=== PATIENT | male | born 1995 | race Caucasian/White ===

== ENCOUNTER → 2018-01-17 | Outpatient (CLI) | payer BC | END | disposition home or self-care (01) | LOC: LABWHC1 07:58 | PROVIDERS: ATTEND Internal Medicine | DX: R53.82 Chronic fatigue, unspecified (principal) | CPT/HCPCS: 36415; 83001; 83002; 84402; 84403 ==

== ENCOUNTER → 2021-08-10 | Outpatient (CLI) | payer BC ==
--- NOTE | 2021-08-10 14:43 | US ---
EXAMINATION TYPE: US scrotum with doppler. DATE OF EXAM: 08/10/2021 COMPARISON: NONE CLINICAL HISTORY: 26-year-old male N50.819 Testicular pain. Left pain occasional TECHNIQUE: Grayscale and color Doppler Duplex imaging performed of the scrotum. FINDINGS: EXAM MEASUREMENTS: TESTICLES: Right Testicle: 4.9x3.4x2.4 cm Left Testicle: 4.9x2.5x3.1 cm EPIDIDYMIS HEAD: Right Epididymis: 0.6 cm Left Epididymis: 1.0 cm Doppler performed to assess for testicular vascularity; good bilateral color flow and waveforms are s een. There is no evidence of testicular torsion. Presence of hydroceles: No Presence of varicoceles: No IMPRESSION: No sonographic evidence for testicular torsion or epididymoorchitis.
== END | disposition home or self-care (01) ==
LOC: RADUSWWP 09:40
PROVIDERS: ATTEND Family Medicine
DX: N50.812 Left testicular pain (principal)
CPT/HCPCS: 76870; 93975

== ENCOUNTER → 2022-03-15 | Outpatient (CLI) | payer BC ==
--- NOTE | 2022-03-16 07:10 | US ---
EXAMINATION TYPE: US scrotum with doppler. Grayscale and color Doppler Duplex imaging performed of t he scrotum. DATE OF EXAM: 03/15/2022 COMPARISON: NONE CLINICAL HISTORY: N50.812 LT TESTICLE PAIN. Pain EXAM MEASUREMENTS: TESTICLES: Right Testicle: 4.7 x 2.1 x 4.9 cm Left Testicle: 4.8 x 2.5 x 3.0 cm EPIDIDYMIS HEAD: Right Epididymis: .7 x .9 x 1.0 cm Left Epididymis: .9 x .7 x .9 cm Doppler performed to assess for testicular vascularity; good bilateral color flow and waveforms are s een. There is no evidence of testicular torsion. Presence of hydroceles: No Presence of varicoceles: No IMPRESSION: No acute process.
== END | disposition home or self-care (01) ==
LOC: RADUSWWP 16:07
PROVIDERS: ATTEND Family Medicine
DX: N50.812 Left testicular pain (principal)
CPT/HCPCS: 76870; 93975

== ENCOUNTER 2024-01-31 18:18 | Observation (INO) | payer BC ==
--- NOTE | 2024-01-31 18:59 | ED ---
General Adult HPI - General Chief complaint: Chest Pain Stated complaint: Chest tightness,HTN Time Seen by Provider: 01/31/24 18:30 Source: patient, RN notes reviewed, old records reviewed Mode of arrival: ambulatory Limitations: no limitations - History of Present Illness Initial comments: 28-year-old male presenting for evaluation of chest discomfort. Symptoms began yesterday. Patient was diagnosed with hypertension at the primary office yesterday. He was started on lisinopril which he took the first dose today. He has no prior history of CAD or hypertension prior to this diagnosis. He does report that he was anxious at the time of symptom onset. No vomiting. - Related Data Previous Rx's Medication Instructions Recorded HYDROcodone/APAP 7.5-325MG [[place] 1 tab PO Q6HR PRN #28 tab 04/30/16 7.5-325] Allergies Allergy/AdvReac Type Severity Reaction Status Date / Time No Known Allergies Allergy Verified 01/31/24 18:23 Review of Systems ROS Statement: Those systems with pertinent positive or pertinent negative responses have been documented in the HPI. ROS Other: All systems not noted in ROS Statement are negative. Past Medical History Past Medical History: Asthma, Hypertension Additional Past Medical History / Comment(s): STATED THAT LASR WEEK AND SOME DIARRHEA FEW DAYS THAT HAS SINCE RESOLVED. BOARDERLINE HIGH BLOOD PRESSURE, SPORTS INDUCED ASTHMA, SMALL RT INGUINAL HERNIA History of Any Multi-Drug Resistant Organisms: None Reported Past Surgical History: No Surgical Hx Reported Past Anesthesia/Blood Transfusion Reactions: No Reported Reaction Additional Past Anesthesia/Blood Transfusion Reaction / Comment(s): NEVER HAD ANY AA Past Psychological History: No Psychological Hx Reported Past Alcohol Use History: None Reported Past Drug Use History: None Reported - Past Family History Mother Family Medical History: Thyroid Disorder Additional Family Medical History / Comment(s): "ARRYTMIA", MELANOMA Father Family Medical History: Hypertension Additional Family Medical History / Comment(s): KIDNEY STONES,HAD GALLBLADDER REMOVED. General Exam Limitations: no limitations General appearance: alert, in no apparent distress Head exam: Present: atraumatic, normocephalic Eye exam: Present: normal appearance, PERRL ENT exam: Present: normal exam Neck exam: Present: normal inspection. Absent: tenderness, meningismus Respiratory exam: Present: normal lung sounds bilaterally. Absent: respiratory distress, wheezes, rales, rhonchi Cardiovascular Exam: Present: regular rate, normal rhythm Extremities exam: Present: normal inspection, normal capillary refill. Absent: pedal edema Neurological exam: Present: alert, oriented X3, CN II-XII intact. Absent: motor sensory deficit Psychiatric exam: Present: anxious Skin exam: Present: warm, dry, intact Course Vital Signs 01/31/24 01/31/24 01/31/24 18:21 20:00 20:37 Temperature 97.6 F Pulse Rate 96 Respiratory 16 Rate Blood Pressure 162/107 120/88 140/98 O2 Sat by Pulse 99 Oximetry Medical Decision Making - Medical Decision Making Was pt. sent in by a medical professional or institution (, [facility], ADMINISTRATIVE LIBRARY ASSISTANT, urgent care, hospital, or senior care...) When possible be specific @ -No Did you speak to anyone other than the patient for history (EMS, parent, family, police, friend...)? What history was obtained from this source @ -No Did you review nursing and triage notes (agree or disagree)? Why? @ -I reviewed and agree with nursing and triage notes Were old charts reviewed (outside hosp., previous admission, EMS record, old EKG, old radiological studies, urgent care reports/EKG's, senior care records)? Report findings @ -No old charts were reviewed Differential Chest Pain: Stable Angina, Unstable Angina, STEMI, NSTEMI Aortic Dissection, Pneumothorax, Musculoskeletal, Esophageal Spasm GERD, Cholecystitis, Pancreatitis, Zoster, this is not meant to be an all-inclusive list. EKG interpreted by me (3pts min.). @Sinus rhythm rate of 79, AR interval 162, QRS duration 83, QTc [address] segment changes. X-rays interpreted by me (1pt min.). @ -Chest x-ray negative for acute cardiopulmonary CT interpreted by me (1pt min.). @ -None done U/S interpreted by me (1pt. min.). @ -None done What testing was considered but not performed or refused? (CT, X-rays, U/S, labs)? Why? @ -None What meds were considered but not given or refused? Why? @ -None Did you discuss the management of the patient with other professionals (professionals i.e. [facility]Y Levine, ADMINISTRATIVE LIBRARY ASSISTANT, lab, RT, psych nurse, social service manager, development expert, teacher, articulation officer, case liner)? Give summary @Dr. Carl, will admit Was smoking cessation discussed for >3mins.? @ -No Was critical care preformed (if so, how long)? @ -No Were there social determinants of health that impacted care today? How? (Homelessness, low income, unemployed, alcoholism, drug addiction, transportation, low edu. Level, literacy, decrease access to med. care, half-way, rehab)? @ -No Was there de-escalation of care discussed even if they declined (Discuss DNR or withdrawal of care, Hospice)? DNR status @ -No What co-morbidities impacted this encounter? (DM, HTN, Smoking, COPD, CAD, Cancer, CVA, ARF, Chemo, Hep., AIDS, mental health diagnosis, sleep apnea, morbid obesity)? @ -Hypertension Was patient admitted / discharged? Hospital course, mention meds given and route, prescriptions, significant lab abnormalities, going to OR and other pertinent info. @28-year-old male presenting with chief complaint of chest discomfort. EKG sinus rhythm without ST segment changes. Chest x-ray is clear. He has a mild leukocytosis at 12. Mild transaminitis, otherwise normal laboratory testing. Negative troponin, negative D-dimer. Initial blood pressure is quite elevated. The patient had started lisinopril today first dose. I discussed case with Dr. Mitchell who will observe the patient overnight for monitoring. Patient was scheduled for echo later this week, this will be ordered as well. Undiagnosed new problem with uncertain prognosis? @ -No Drug Therapy requiring intensive monitoring for toxicity (Heparin, Nitro, Insulin, Cardizem)? @ -No Were any procedures done? @ -No Diagnosis/symptom? @ -Hypertension, chest discomfort Acute, or Chronic, or Acute on Chronic? @. Acute Uncomplicated (without systemic symptoms) or Complicated (systemic symptoms)? @ -Default Side effects of treatment? @ -No Exacerbation, Progression, or Severe Exacerbation? @ -No Poses a threat to life or bodily function? How? (Chest pain, USA, PR, pneumonia, PE, COPD, DKA, ARF, appy, cholecystitis, CVA, Diverticulitis, Homicidal, Suicidal, threat to staff... and all critical care pts) @ -Moderate risk, chest pain - Lab Data Result diagrams: 01/31/24 19:12 01/31/24 19:12 Lab Results 01/31/24 01/31/24 01/31/24 Range/Units 19:12 19:12 19:12 WBC 12.0 H (3.8-10.6) k/uL RBC 5.25 (4.30-5.90) m/uL Hgb 17.1 (13.0-17.5) gm/dL Hct 49.2 (39.0-53.0) % MCV 93.7 (80.0-100.0) fL MCH 32.6 (25.0-35.0) pg MCHC 34.8 (31.0-37.0) g/dL RDW 12.1 (11.5-15.5) % Plt Count 263 (150-450) k/uL MPV 8.6 Neutrophils % 79 % Lymphocytes % 14 % Monocytes % 6 % Eosinophils % 0 % Basophils % 0 % Neutrophils # 9.5 H (1.3-7.7) k/uL Lymphocytes # 1.6 (1.0-4.8) k/uL Monocytes # 0.7 (0-1.0) k/uL Eosinophils # 0.0 (0-0.7) k/uL Basophils # 0.0 (0-0.2) k/uL PT 11.9 (10.0-12.5) sec INR 1.1 (<1.2) APTT 26.3 (22.0-30.0) sec D-Dimer (<0.60) mg/L FEU Sodium 141 (137-145) mmol/L Potassium 3.7 (3.5-5.1) mmol/L Chloride 105 (98-107) mmol/L Carbon Dioxide 26 (22-30) mmol/L Anion Gap 10 mmol/L BUN 12 (9-20) mg/dL Creatinine 0.77 (0.66-1.25) mg/dL Est GFR (CKD-EPI)AfAm >90 (>60 ml/min/1.73 sqM) Est GFR (CKD-EPI)NonAf >90 (>60 ml/min/1.73 sqM) Glucose 95 (74-99) mg/dL Calcium 9.3 (8.4-10.2) mg/dL Magnesium 1.8 (1.6-2.3) mg/dL Total Bilirubin 1.1 (0.2-1.3) mg/dL AST 64 H (17-59) U/L ALT 100 H (4-49) U/L Alkaline Phosphatase 84 (38-126) U/L Troponin I (0.000-0.034) ng/mL Total Protein 8.5 H (6.3-8.2) g/dL Albumin 5.1 H (3.5-5.0) g/dL Urine Color Urine Appearance (Clear) Urine pH (5.0-8.0) Ur Specific Emma (1.001-1.035) Urine Protein (Negative) Urine Glucose (UA) (Negative) Urine Ketones (Negative) Urine Blood (Negative) Urine Nitrite (Negative) Urine Bilirubin (Negative) Urine Urobilinogen (<2.0) mg/dL Ur Leukocyte Esterase (Negative) 01/31/24 01/31/24 01/31/24 Range/Units 19:12 19:12 19:12 WBC (3.8-10.6) k/uL RBC (4.30-5.90) m/uL Hgb (13.0-17.5) gm/dL Hct (39.0-53.0) % MCV (80.0-100.0) fL MCH (25.0-35.0) pg MCHC (31.0-37.0) g/dL RDW (11.5-15.5) % Plt Count (150-450) k/uL MPV Neutrophils % % Lymphocytes % % Monocytes % % Eosinophils % % Basophils % % Neutrophils # (1.3-7.7) k/uL Lymphocytes # (1.0-4.8) k/uL Monocytes # (0-1.0) k/uL Eosinophils # (0-0.7) k/uL Basophils # (0-0.2) k/uL PT (10.0-12.5) sec INR (<1.2) APTT (22.0-30.0) sec D-Dimer 0.31 (<0.60) mg/L FEU Sodium (137-145) mmol/L Potassium (3.5-5.1) mmol/L Chloride (98-107) mmol/L Carbon Dioxide (22-30) mmol/L Anion Gap mmol/L BUN (9-20) mg/dL Creatinine (0.66-1.25) mg/dL Est GFR (CKD-EPI)AfAm (>60 ml/min/1.73 sqM) Est GFR (CKD-EPI)NonAf (>60 ml/min/1.73 sqM) Glucose (74-99) mg/dL Calcium (8.4-10.2) mg/dL Magnesium (1.6-2.3) mg/dL Total Bilirubin (0.2-1.3) mg/dL AST (17-59) U/L ALT (4-49) U/L Alkaline Phosphatase (38-126) U/L Troponin I <0.012 (0.000-0.034) ng/mL Total Protein (6.3-8.2) g/dL Albumin (3.5-5.0) g/dL Urine Color Colorless Urine Appearance Clear (Clear) Urine pH 7.0 (5.0-8.0) Ur Specific Emma 1.002 (1.001-1.035) Urine Protein Negative (Negative) Urine Glucose (UA) Negative (Negative) Urine Ketones Negative (Negative) Urine Blood Negative (Negative) Urine Nitrite Negative (Negative) Urine Bilirubin Negative (Negative) Urine Urobilinogen <2.0 (<2.0) mg/dL Ur Leukocyte Esterase Negative (Negative) Disposition Clinical Impression: Chest pain, Hypertension Disposition: ADMITTED IP TO THIS HOSP Condition: Stable Is patient prescribed a controlled substance at d/c from ED?: No Referrals: Joshua Carl MD [Primary Care Provider] - 1-2 days Time of Disposition: 21:05
[2024-01-31 19:24] LABS: Appearance,Urine Clear (Clear); Bilirubin,Urine Negative (Negative); Blood,Urine Negative (Negative); Color,Urine Colorless; Glucose,Urine (UA) Negative (Negative); Ketones,Urine Negative (Negative); Leukocyte Esterase,Urine Negative (Negative); Nitrite,Urine Negative (Negative); Protein,Urine Negative (Negative); Specific Gravity,Urine 1.002 (1.001-1.035); Urobilinogen,Urine <2.0 mg/dL (<2.0)
[2024-01-31 19:34] LABS: ALT 100 U/L (4-49); AST 64 U/L (17-59); African American GFR (CKD) >90 (>60 ml/min/1.73 sqM); Albumin 5.1 g/dL (3.5-5.0); Alkaline Phosphatase 84 U/L (38-126); Anion Gap 10 mmol/L; Blood Urea Nitrogen 12 mg/dL (9-20); Calcium 9.3 mg/dL (8.4-10.2); Carbon Dioxide 26 mmol/L (22-30); Chloride 105 mmol/L (98-107); Glucose 95 mg/dL (74-99); Magnesium 1.8 mg/dL (1.6-2.3); Non-African American GFR(CKD) >90 (>60 ml/min/1.73 sqM); Potassium 3.7 mmol/L (3.5-5.1); Sodium 141 mmol/L (137-145); Total Bilirubin 1.1 mg/dL (0.2-1.3); Total Protein 8.5 g/dL (6.3-8.2)
[2024-01-31 19:38] LABS: Basophils % (A) 0 %; Eosinophils % (A) 0 %; HCT 49.2 % (39.0-53.0); HGB 17.1 gm/dL (13.0-17.5); Lymphocytes # (A) 1.6 k/uL (1.0-4.8); Lymphocytes % (A) 14 %; MCH 32.6 pg (25.0-35.0); MCHC 34.8 g/dL (31.0-37.0); MCV 93.7 fL (80.0-100.0); Mean Platelet Volume 8.6; Monocytes # (A) 0.7 k/uL (0-1.0); Monocytes % (A) 6 %; Neutrophils # (A) 9.5 k/uL (1.3-7.7); Neutrophils % (A) 79 %; Platelet Count 263 k/uL (150-450); RBC 5.25 m/uL (4.30-5.90); RDW 12.1 % (11.5-15.5)
[2024-01-31 19:42] LABS: INR 1.1 (<1.2); Partial Thromboplastin Time 26.3 sec (22.0-30.0); Prothrombin Time 11.9 sec (10.0-12.5)
--- NOTE | 2024-01-31 19:59 | XR ---
EXAMINATION TYPE: XR chest 2V DATE OF EXAM: 01/31/2024 7:22 PM CLINICAL INDICATION:Male, 28 years old with history of Chest Pain; [facility] COMPARISON: None TECHNIQUE: XR chest 2V. Frontal and lateral views of the chest.. FINDINGS: Lines/Tubes/Devices: No indwelling lines are seen. Heart/mediastinum: Heart size is normal. Mediastinum appears normal. Pulmonary vascularity: Not increased, Lungs/Pleura: There is no evidence of pleural effusion, focal consolidation, or pneumothorax. Musculoskeletal: No acute osseous abnormality demonstrated in the limits of the exam. Other findings: None. IMPRESSION: No acute cardiopulmonary abnormality.
[2024-01-31] MEDS ORDERED: ACETAMINOPHEN TAB 325 MG TAB PO PRN (21:01)
[2024-01-31] MEDS ORDERED: NALOXONE 0.4 MG/ML 1 ML VIAL IV PRN (21:01)
[2024-01-31] MEDS: ASPIRIN 325 MG TAB PO STA (21:37)
[2024-02-01 15:56] LABS: Hepatitis A Antibody IgM Nonreactive (Nonreactive); Hepatitis B Core IgM Nonreactive (Nonreactive); Hepatitis B Surface Antigen Nonreactive (Nonreactive); Hepatitis C IgG Antibody Nonreactive (Nonreactive)
[2024-02-01 16:07] LABS: Albumin 4.7 g/dL (3.8-4.9); Albumin/Globulin Ratio 1.74 Ratio (1.60-3.17); Bilirubin, Conjugated 0.78 mg/dL (0.20-0.40); Bilirubin,Unconjugated 1.32 mg/dL (0.20-1.00); Globulin 2.7 g/dL (1.6-3.3); Total Bilirubin 2.1 mg/dL (0.3-1.2); Total Protein 7.4 g/dL (6.2-8.2)
--- NOTE | 2024-02-01 19:10 | CA ---
Transthoracic Echo Report Name: Eitan Nam Age: 28 Gender: M : 1995 Exam Date: 02/01/2024 15:29 Exam Location: [facility] Ht (in): 73 Wt (lb): 236 Ordering Physician: Marcell Donovan MD Attending/Referring Phys: [id number], [employer] Chief Bhavya Rodríguez RDCS Procedure CPT: Indications: CP Cardiac Hx: Technical Quality: Good Contrast 1: Total Dose (mL): Contrast 2: Total Dose (mL): MEASUREMENTS (Male / Female) Normal Values 2D ECHO LV Diastolic Diameter PLAX 4.5 cm 4.2 - 5.9 / 3.9 - 5.3 cm LV Systolic Diameter PLAX 3.1 cm IVS Diastolic Thickness 0.8 cm 0.6 - 1.0 / 0.6 - 0.9 cm LVPW Diastolic Thickness 0.9 cm 0.6 - 1.0 / 0.6 - 0.9 cm LV Relative Wall Thickness 0.4 RV Internal Dim ED PLAX 3.5 cm LVOT Diameter 2.4 cm LV Diastolic Volume MOD BP 114.1 cm??? 67 - 155 / 56 - 104 cm??? LV Systolic Volume MOD BP 45.9 cm??? 22 - 58 / 19 - 49 cm??? LV Ejection Fraction MOD BP 59.8 % >= 55 % LV Cardiac Index MOD BP 1840.3 cm???/min???m??? LV Diastolic Volume MOD 4C 101.7 cm??? LV Systolic Volume MOD 4C 39.2 cm??? LV Ejection Fraction MOD 4C 61.5 % LV Cardiac Index MOD 4C 1684.4 cm???/min???m??? LV Diastolic Length 4C 9.3 cm LV Systolic Length 4C 7.7 cm LV Diastolic Volume MOD 2C 126.8 cm??? LV Systolic Volume MOD 2C 53.1 cm??? LV Ejection Fraction MOD 2C 58.1 % LV Cardiac Index MOD 2C 1985.9 cm???/min???m??? LV Diastolic Length 2C 9.4 cm LV Systolic Length 2C 7.6 cm LA Volume 38.8 cm??? 18 - 58 / 22 - 52 cm??? LA Volume Index 16.3 cm???/m??? 16 - 28 cm???/m??? Ascending Aorta Diameter 2.8 cm DOPPLER AV Peak Velocity 112.6 cm/s AV Peak Gradient 5.1 mmHg AV Mean Velocity 79.2 cm/s AV Mean Gradient 2.7 mmHg AV Velocity Time Integral 21.7 cm LVOT Peak Velocity 86.1 cm/s LVOT Peak Gradient 3.0 mmHg LVOT Velocity Time Integral 17.0 cm LVOT Stroke Volume 75.6 cm??? LVOT Stroke Volume Index 32.7 ml/m??? LVOT Cardiac Index 2037.0 cm???/min???m??? AV Area Cont Eq vti 3.5 cm??? AV Area Cont Eq pk 3.4 cm??? MV Area PHT 3.9 cm??? Mitral E Point Velocity 70.2 cm/s Mitral A Point Velocity 40.8 cm/s Mitral E to A Ratio 1.7 MV Deceleration Time 194.3 ms TR Peak Velocity 198.6 cm/s TR Peak Gradient 15.8 mmHg Right Atrial Pressure 5.0 mmHg Pulmonary Artery Systolic Pressu 20.8 mmHg Right Ventricular Systolic Press 20.8 mmHg PV Peak Velocity 73.5 cm/s PV Peak Gradient 2.2 mmHg FINDINGS Left Ventricle Left ventricular ejection fraction is estimated at 55-60 %. Left ventricular cavity size normal. Left ventricular wall thickness normal. No obvious regional wall motion abnormalities. Right Ventricle Normal right ventricular size and function. Right ventricular systolic pressure within normal limits. Right Atrium Normal right atrial size. Left Atrium Normal left atrial size. Mitral Valve Structurally normal mitral valve. No evidence for mitral valve prolapse. No mitral stenosis. Trace mitral regurgitation. Aortic Valve Trileaflet aortic valve. No aortic valve stenosis or regurgitation. Tricuspid Valve Structurally normal tricuspid valve. No tricuspid stenosis. Trace tricuspid regurgitation. Pulmonic Valve Structurally normal pulmonic valve. No pulmonic stenosis. Trace pulmonic regurgitation. Pericardium No pericardial effusion. Aorta Normal size aortic root and proximal ascending aorta. CONCLUSIONS Technically difficult study for interpretation. Poorly visualized endocardial Normal LV systolic function Normal pulmonary artery systolic pressure Normal intracardiac valves No pericardial effusion Previewed by: Dr. Daniel Ordonez MD (Electronically Signed) Final Date: 01 Feb 2024 19:09
[2024-02-01] MEDS: IPRATROPIUM-ALBUTEROL 3 ML NEB INHALATION SCH (20:28)
[2024-02-01 21:57] VITALS: RESP 16
[2024-02-01] MEDS: SODIUM CHLORIDE 0.9% 1,000 ML IV SCH (22:28)
--- NOTE | 2024-02-01 23:40 | HP ---
HISTORY AND PHYSICAL HISTORY OF PRESENT ILLNESS: Eitan Nam came to the emergency room. A 28-year-old gentleman with altered chest discomfort, hypertension, started on lisinopril. He felt funny the next day after he took it, so he came to the emergency room. His exam is super anxious. No vomiting. He has been watched overnight. His blood pressure has been pretty good without blood pressure medications. ALLERGIES: No known drug allergies. MEDICATIONS: As mentioned, he has a history of sleep apnea, hypertension, asthma. He takes inhalers at home. PAST MEDICAL HISTORY: Borderline high blood pressure. FAMILY HISTORY: Mother hypothyroidism. Father hypertension. PHYSICAL EXAMINATION: VITAL SIGNS: Stable, afebrile. CARDIOVASCULAR: S1, S2. LUNGS: Clear. GI: Soft. HEMATOLOGY: Negative Homans. PSYCH: Fair mood and affect. NEUROLOGIC: Cranial nerves intact. ASSESSMENT: History of obstructive sleep apnea, asthma, elevated liver enzymes. UA was negative. Troponins negative. Talked to him about possibility of going home. Prognosis is guarded. Please see further orders. MMODL / IJN: [id number] /
--- NOTE | 2024-02-02 08:11 | US ---
EXAMINATION TYPE: US abdomen complete DATE OF EXAM: 02/02/2024 COMPARISON: NONE CLINICAL INDICATION: Male, 28 years old with history of lft high; Elevated liver enzymes. cholecystec abdi TECHNIQUE: Multiple sonographic images of the abdomen are obtained. FINDINGS: EXAM MEASUREMENTS: Liver Length: 17.0 cm Gallbladder Wall: Surgically absent CBD: 0.5 cm Spleen: 10.5 cm Right Kidney: 11.9 x 5.5 x 5.4 cm Left Kidney: 9.7 x 5.5 x 5.7 cm WASHER CUTTER NOTES: Technical limitations due to large amount of overlying bowel gas Pancreas: Obscured by bowel gas Liver: visualized portions appear wnl Gallbladder: Surgically absent Evidence for sonographic Ogden's sign: no CBD: wnl Spleen: wnl Right Kidney: no evidence of hydronephrosis Left Kidney: limited evaluation, no evidence of hydronephrosis Upper IVC: wnl Abd Aorta: bifurcation obscured IMPRESSION: Limited exam demonstrates postcholecystectomy changes with no definite acute process.
--- NOTE | 2024-02-02 10:05 | P.CRDCN ---
History of Present Illness History of present illness: HISTORY OF PRESENT ILLNESS: This is a 28-year-old male with a past medical history significant for hypertension, childhood asthma, and obstructive sleep apnea with CPAP use. Patient does not follow with a flight communications specialist. We have been asked to see the patient in consultation for chest pain. Patient examined at the bedside. Patient states on Tuesday night he was sleeping and he woke up feeling short of breath. He states that he felt like he could not catch his breath. He states that has heart rate felt faint. He states that he sat up and tried to catch his breath and then his heart felt like it was pounding very hard. He states that his heart did not feel like it was racing but just that he could feel a pounding. He states that he took his first dose of lisinopril that morning and went to work. He reports having an episode a couple weeks ago where he had a really bad headache and felt flushed. He denies any chest pain or pressure. He denied any shortness of breath. The patient denies having any episodes of chest pain or pressure the past few weeks. Patient states he checked his blood pressure at home and his blood pressure was around 130 systolic. He states that he was just started on lisinopril recently and he just took his first dose of lisinopril on Tuesday morning. He is a non-smoker. He reports a family history of CAD on both sides of his family. He states that his grandpa has had a CABG. DIAGNOSTICS: - EKG reveals sinus mechanism with no signs of acute ischemia. - Chest xray negative for acute process. - Laboratory data: WBC 12.0. Hemoglobin 17.1. Platelet count 263. D-dimer 0.31. Sodium 141. Potassium 3.7. BUN 12. Creatinine 0.77. Bilirubin 2.1. AST 134. ALT 161. Troponin negative x 4. - Current home cardiac medications include lisinopril 10 mg daily. - Echocardiogram obtained this admission reveals ejection fraction 55 to 60%, trace MR, trace TR REVIEW OF SYSTEMS: At the time of my exam: CONSTITUTIONAL: Denies fever or chills. HEENT: Denies blurred vision, vision changes, or eye pain. Denies hemoptysis CARDIOVASCULAR: Denies chest pain. Denies orthopnea. Denies PND. Denies palpitations RESPIRATORY: Denies shortness of breath. GASTROINTESTINAL: Denies abdominal pain. Denies nausea or vomiting. HEMATOLOGIC: Denies bleeding disorders. GENITOURINARY: Denies any blood in urine. SKIN: Denies pruitis. Denies rash. PHYSICAL EXAM: VITAL SIGNS: Reviewed. GENERAL: Well-developed in no acute distress. HEENT: Head is normocephalic. Pupils are equal, round. Sclerae anicteric. Mucous membranes of the mouth are moist. Neck supple. No JVD or thyromegaly LUNGS: Respirations even and unlabored. Lungs essentially clear to auscultation bilaterally. HEART: Regular rate and rhythm. S1 and S2 heard. ABDOMEN: Soft. Nondistended. Nontender. EXTREMITIES: Normal range of motion. No clubbing or cyanosis. Peripheral pulses intact. No lower extremity edema NEUROLOGIC: Awake and alert. Oriented x 3. ASSESSMENT: Chest pain, ruled out, patient denies having any chest pain now or prior to coming to the hospital Isolated episode of shortness of breath, etiology unclear Hypertension, recently started on lisinopril Mild leukocytosis Hyperbilirubinemia Elevated LFTs Obstructive sleep apnea with CPAP use History of childhood asthma Family history of CAD PLAN: An acute coronary event has been ruled out 2D echo obtained and reviewed General surgery consulted for further evaluation Patient is currently stable from a cardiac standpoint Patient may follow-up postdischarge in the office with Dr. Ordonez Will consider outpatient stress testing We will follow on an as-needed basis. Please call with questions or concerns. Nurse practitioner note has been reviewed by physician. Signing provider agrees with the documented findings, assessment, and plan of care documented by ELECTRIC CAR OPERATOR as a scribe. Past Medical History Past Medical History: Asthma, Hypertension, Sleep Apnea/CPAP/BIPAP Additional Past Medical History / Comment(s): STATED THAT LASR WEEK AND SOME DIARRHEA FEW DAYS THAT HAS SINCE RESOLVED. BOARDERLINE HIGH BLOOD PRESSURE, SPORTS INDUCED ASTHMA, SMALL RT INGUINAL HERNIA CPAP at home History of Any Multi-Drug Resistant Organisms: None Reported Past Surgical History: Cholecystectomy Past Anesthesia/Blood Transfusion Reactions: No Reported Reaction Additional Past Anesthesia/Blood Transfusion Reaction / Comment(s): NEVER HAD ANY AA Past Psychological History: No Psychological Hx Reported Smoking Status: Never smoker Past Alcohol Use History: Occasional Past Drug Use History: None Reported - Past Family History Mother Family Medical History: Thyroid Disorder Additional Family Medical History / Comment(s): "ARRYTMIA", MELANOMA Father Family Medical History: Hypertension Additional Family Medical History / Comment(s): KIDNEY STONES,HAD GALLBLADDER REMOVED. Medications and Allergies Home Medications Medication Instructions Recorded Confirmed Type Tiotropium 2.5 Mcg/Puff [Spiriva 2 puff INHALATION RT-DAILY 02/01/24 02/01/24 History Respimat 2.5 Mcg] lisinopriL [Zestril] 10 mg PO DAILY 02/01/24 02/01/24 History methylPREDNISolone Dose Pack See Taper PO DIRECTED 02/01/24 02/01/24 History [Medrol Dose Pack] Allergies Allergy/AdvReac Type Severity Reaction Status Date / Time No Known Allergies Allergy Verified 02/01/24 07:34 Physical Exam Vitals: Vital Signs Temp Pulse Pulse Resp BP BP BP 02/02/24 07:00 97.6 F 68 16 110/74 02/02/24 02:00 97.6 F 85 16 131/74 02/01/24 22:00 70 02/01/24 20:00 97.6 F 70 16 134/84 02/01/24 18:23 98.6 F 71 18 129/94 02/01/24 18:00 76 18 129/94 02/01/24 16:42 82 18 120/89 02/01/24 13:46 80 18 126/86 02/01/24 12:00 103 H 16 127/89 02/01/24 11:00 92 16 121/77 02/01/24 10:00 87 16 113/78 02/01/24 09:31 69 16 113/78 Pulse Ox 02/02/24 07:00 97 02/02/24 02:00 99 02/01/24 22:00 02/01/24 20:00 96 02/01/24 18:23 98 02/01/24 18:00 98 02/01/24 16:42 99 02/01/24 13:46 02/01/24 12:00 02/01/24 11:00 02/01/24 10:00 02/01/24 09:31 Intake and Output 02/01/24 02/02/24 02/02/24 22:59 06:59 14:59 Other: # Voids 1 2 Weight 107.048 kg Results 01/31/24 19:12 01/31/24 19:12 Cardiac Enzymes 02/01/24 02/01/24 Range/Units 10:56 20:05 AST 134 H (14-35) U/L Troponin I <0.012 (0.000-0.034) ng/mL Comprehensive Metabolic Panel 02/01/24 Range/Units 10:56 Unconjugated Bilirubin 1.32 H (0.20-1.00) mg/dL AST 134 H (14-35) U/L ALT 161 H (10-49) U/L Alkaline Phosphatase 101 (41-126) U/L Total Protein 7.4 (6.2-8.2) g/dL Albumin 4.7 (3.8-4.9) g/dL Current Medications Generic Name Dose Route Start Last Admin Trade Name Freq PRN Reason Stop Dose Admin Acetaminophen 650 mg 01/31/24 21:01 Acetaminophen Tab 325 Mg Tab PO Q6HR PRN Mild Pain or Fever > 100.5 Albuterol/Ipratropium 3 ml 02/01/24 20:00 02/01/24 20:28 Ipratropium-Albuterol 3 Ml Neb INHALATION Not Given RT-QID STEPHANIE Sodium Chloride 1,000 mls @ 75 mls/hr 02/01/24 20:00 02/01/24 22:28 Saline 0.9% IV 75 mls/hr .[id number] STEPHANIE Administration Naloxone HCl 0.2 mg 01/31/24 21:01 Naloxone 0.4 Mg/Ml 1 Ml Vial IV Q2M PRN Opioid Reversal Intake and Output 02/01/24 02/02/24 02/02/24 22:59 06:59 14:59 Other: # Voids 1 2 Weight 107.048 kg 01/31/24 19:12 01/31/24 19:12
[2024-02-02 10:24] LABS: Basophils # (A) 0.04 X 10*3/uL (0.00-0.10); Basophils % (A) 0.6 %; Eosinophils # (A) 0.06 X 10*3/uL (0.04-0.35); Eosinophils % (A) 0.9 %; HCT 47.1 % (39.6-50.0); HGB 16.2 g/dL (13.0-17.0); Lymphocytes # (A) 1.91 X 10*3/uL (0.90-5.00); Lymphocytes % (A) 27.2 %; MCH 32.5 pg (27.0-32.0); MCHC 34.4 g/dL (32.0-37.0); MCV 94.4 FL (80.0-97.0); Mean Platelet Volume 11.2 FL (9.5-12.2); Monocytes # (A) 0.81 X 10*3/uL (0.20-1.00); Monocytes % (A) 11.6 %; NRBC Per 100 WBC 0 X 10*3/uL (0.00-0.01); Neutrophils # (A) 4.17 X 10*3/uL (1.80-7.70); Neutrophils % (A) 59.4 %; Platelet Count 245 X 10*3/uL (140-440); RBC 4.99 X 10*6/uL (4.40-5.60); RDW 12.1 % (11.5-14.5); WBC 7.01 X 10*3/uL (4.50-10.00)
--- NOTE | 2024-02-02 10:53 | CT ---
Hepatic steatosis EXAMINATION TYPE: CT abdomen wo con DATE OF EXAM: 02/01/2024 COMPARISON: None HISTORY: 28-year-old male elevated LFTs, epigastric discomfort TECHNIQUE: Contiguous axial scanning of the abdomen without IV contrast. Coronal and sagittal reconst ructions performed. CT DLP: 608 mGycm Automated exposure control for dose reduction was used. FINDINGS: Heart is normal size without pericardial effusion. Lung bases clear without pleural effusion. Liver borderline in size at 17.1 cm. No significant fatty infiltration appreciated by noncontrast CT. Cholecystectomy clips. No obvious biliary ductal dilatation. Spleen borderline enlarged at 13.7 cm. Adrenal glands, kidneys, and pancreas show no gross abnormality by noncontrast CT. No dilated small bowel, free fluid, or free air. No mesenteric or retroperitoneal lymphadenopathy. Sc attered nonenlarged mesenteric nodes are seen. Mild stool burden. No pericolonic inflammatory change. Pelvis not imaged. Bones: Some straightening of the normal lumbar lordosis. IMPRESSION: BORDERLINE HEPATOSPLENOMEGALY (LIVER 17.1 CM AND SPLEEN 13.7 CM). Patient status post cholecystectom y. Otherwise, no specific abnormality identified in the abdomen.
[2024-02-02 11:11] LABS: ALT 125 U/L (10-49); AST 51 U/L (14-35); Albumin 4.5 g/dL (3.8-4.9); Alkaline Phosphatase 94 U/L (41-126); BUN/Creat Ratio 15.89 Ratio (12.00-20.00); Blood Urea Nitrogen 14.3 mg/dL (9.0-27.0); Calcium 9.1 mg/dL (8.7-10.3); Carbon Dioxide 25.6 mmol/L (21.6-31.8); Chloride 104 mmol/L (96-109); Globulin 2.5 g/dL (1.6-3.3); Glucose 95 mg/dL (70-110); Potassium 4.5 mmol/L (3.5-5.5); Sodium 139 mmol/L (135-145)
--- NOTE | 2024-02-02 13:10 | P.GSCN ---
History of Present Illness Consult date: 02/02/24 History of present illness: CHIEF COMPLAINT: Shortness of breath, chest tightness HISTORY OF PRESENT ILLNESS: This is a 28-year-old male who presented with shortness of breath, chest tightness and not feeling right. He denies any abdominal pain. Denies any nausea or vomiting. Patient reports being on newer medications lisinopril and Spiriva. He has been seen by cardiology and has been cleared for discharge. Surgical service consulted in regards to elevated liver enzymes. Patient denies any abdominal pain. He has a history of a laparoscopic cholecystectomy in 2016. He reports his bowel movements have been normal no diarrhea. He denies any recent traveling. He does report taking a protein supplement since September since he started a new workout routine. He reports an occasional alcohol use. Last alcoholic beverage was about 2 weeks ago and he thinks he had maybe 3 beers. Patient reports an occasional left upper quadrant intermittent pain. The last episode of that pain was over a week and a half ago. And the pains may correlate with when he started the protein supplement. PAST MEDICAL HISTORY: Asthma, Hypertension, sports induced asthma. Small right inguinal hernia PAST SURGICAL HISTORY: Cholecystectomy MEDICATIONS: See below ALLERGIES: See below SOCIAL HISTORY: No illicit drug use. REVIEW OF SYSTEMS: CONSTITUTIONAL: Denies fever or chills. HEENT: Denies blurred vision, vision changes, or eye pain. Denies hemoptysis CARDIOVASCULAR: Denies chest pain or pressure. RESPIRATORY: No shortness of breath. GASTROINTESTINAL: See HPI for pertinent findings HEMATOLOGIC: Denies bleeding disorders. GENITOURINARY: Denies any blood in urine or increased urinary frequency. SKIN: Denies pruitis. Denies rash. PHYSICAL EXAM: VITAL SIGNS: Reviewed GENERAL: Well-developed in no acute distress. HEENT: No sclera icterus. Extraocular movements grossly intact. Moist buccal mucosa. Head is atraumatic, normocephalic. No nasal drainage. ABDOMEN: Soft. Nondistended. Nontender NEUROLOGIC: Alert and oriented. Cranial nerves II through XII grossly intact. LABORATORY DATA: WBC 12 Hgb 17.1 platelets 263 INR 1.1 D-dimer 0.31 Sodium 141 potassium 3.7 creatinine 0.77 Total bilirubin 1.1 up to 2.1 AST 64 up to 134 ALT 100 up to 161 Troponins negative Lipase 105 Urinalysis negative hepatitis panel negative IMAGING: CT scan abdomen pelvis pending Abdominal ultrasound limited exam reports postcholecystectomy changes with no definite acute process ASSESSMENT: 1. Elevated LFTs and total bilirubin. No abdominal pain 2. History of cholecystectomy PLAN: -No surgical intervention planned -Start regular diet -Recommend repeating LFTs and bilirubin Physician Clinical Rn Liaison note has been reviewed by physician. Signing provider agrees with the documented findings, assessment, and plan of care. Past Medical History Past Medical History: Asthma, Hypertension, Sleep Apnea/CPAP/BIPAP Additional Past Medical History / Comment(s): STATED THAT LASR WEEK AND SOME DIARRHEA FEW DAYS THAT HAS SINCE RESOLVED. BOARDERLINE HIGH BLOOD PRESSURE, SPORTS INDUCED ASTHMA, SMALL RT INGUINAL HERNIA CPAP at home History of Any Multi-Drug Resistant Organisms: None Reported Past Surgical History: Cholecystectomy Past Anesthesia/Blood Transfusion Reactions: No Reported Reaction Additional Past Anesthesia/Blood Transfusion Reaction / Comm: NEVER HAD ANY AA Past Psychological History: No Psychological Hx Reported Smoking Status: Never smoker Past Alcohol Use History: Occasional Past Drug Use History: None Reported - Past Family History Mother Family Medical History: Thyroid Disorder Additional Family Medical History / Comment(s): "ARRYTMIA", MELANOMA Father Family Medical History: Hypertension Additional Family Medical History / Comment(s): KIDNEY STONES,HAD GALLBLADDER REMOVED. Medications and Allergies Home Medications Medication Instructions Recorded Confirmed Type Tiotropium 2.5 Mcg/Puff [Spiriva 2 puff INHALATION RT-DAILY 02/01/24 02/01/24 History Respimat 2.5 Mcg] lisinopriL [Zestril] 10 mg PO DAILY 02/01/24 02/01/24 History methylPREDNISolone Dose Pack See Taper PO DIRECTED 02/01/24 02/01/24 History [Medrol Dose Pack] Allergies Allergy/AdvReac Type Severity Reaction Status Date / Time No Known Allergies Allergy Verified 02/01/24 07:34 Surgical - Exam Vital Signs Temp Pulse Resp BP Pulse Ox 97.6 F 96 16 162/107 99 01/31/24 18:21 01/31/24 18:21 01/31/24 18:21 01/31/24 18:21 01/31/24 18:21 Results - Labs 02/02/24 06:48 02/02/24 06:48 Abnormal Lab Results - Last 24 Hours (Table) 02/01/24 Range/Units 10:56 Total Bilirubin 2.1 H (0.3-1.2) mg/dL Conjugated Bilirubin 0.78 H (0.20-0.40) mg/dL Unconjugated Bilirubin 1.32 H (0.20-1.00) mg/dL AST 134 H (14-35) U/L ALT 161 H (10-49) U/L Diabetes panel 02/01/24 02/01/24 Range/Units 10:56 20:05 Hemoglobin A1c 5.2 (<=6.0) % AST 134 H (14-35) U/L ALT 161 H (10-49) U/L Alkaline Phosphatase 101 (41-126) U/L Total Protein 7.4 (6.2-8.2) g/dL Albumin 4.7 (3.8-4.9) g/dL Calcium panel 02/01/24 Range/Units 10:56 Albumin 4.7 (3.8-4.9) g/dL Adrenal panel 02/01/24 Range/Units 10:56 Total Bilirubin 2.1 H (0.3-1.2) mg/dL AST 134 H (14-35) U/L ALT 161 H (10-49) U/L Alkaline Phosphatase 101 (41-126) U/L Total Protein 7.4 (6.2-8.2) g/dL Albumin 4.7 (3.8-4.9) g/dL
[2024-02-02 14:26] VITALS: BP 128/80; PULSE 85; TEMP 97.3
[2024-02-03] MEDS ORDERED: atenoloL 25 MG TAB PO SCH (09:00)
[2024-02-03] MEDS ORDERED: lisinopriL 5 MG TAB PO SCH (09:00)
[2024-02-07 23:08] LABS: Metanephrine, Free 26 pg/mL (< OR = 57); Normetanephrine, Free 33 pg/mL (< OR = 148); Total, Free (MN + NMN) 59 pg/mL (< OR = 205)
== END 2024-02-02 18:45 | disposition home or self-care (01) ==
LOC: EC 18:18 → 6NMEDSUR 21:03
PROVIDERS: ADMIT Family Medicine; ATTEND Family Medicine
DX: R07.89 Other chest pain (principal); R06.02 Shortness of breath; R79.89 Other specified abnormal findings of blood chemistry; I10 Essential (primary) hypertension; G47.33 Obstructive sleep apnea (adult) (pediatric); J45.909 Unspecified asthma, uncomplicated; Z99.89 Dependence on other enabling machines and devices; D72.829 Elevated white blood cell count, unspecified; Z82.49 Family history of ischemic heart disease and other diseases of the circulatory system; Z90.49 Acquired absence of other specified parts of digestive tract; Z80.8 Family history of malignant neoplasm of other organs or systems; Z79.899 Other long term (current) drug therapy; Z87.09 Personal history of other diseases of the respiratory system
CPT/HCPCS: 99285; 36415; 94760; 93005; 93306; 83835; 85379; 80053 ×2; 80076; 80074; 83690; 83735; 84484 ×2; 85025 ×2; 85610; 85730; 81003; 83036; 71046; 76700; 74150; G0378 ×4

== ENCOUNTER 2024-08-13 09:43 | Day surgery (SDC) | payer BC ==
[2024-08-10 12:22] VITALS: BMI 30.9
[~2024-08-13 09:43] MED LIST: LACTATED RINGERS 1,000 ML IV SCH; LIDOCAINE 1% (10MG/ML) FOR IV START INTRADERMA PRN
[2024-08-13] MEDS: IV FLUID CONTINUATION 1,000 ML IV ONE (10:10)
[2024-08-13 10:18] VITALS: TEMP 97.5
[2024-08-13] MEDS ORDERED: PROPOFOL 10 MG/ML 20 ML VIAL IV ONE (10:55)
--- NOTE | 2024-08-13 11:13 | P.PCN ---
Date of Procedure: 08/13/24 Preoperative Diagnosis: Blood in stool Postoperative Diagnosis: Internal hemorrhoids Procedure(s) Performed: Colonoscopy Anesthesia: MAC Surgeon: Tyrone Mariscal Pathology: none sent Condition: stable Disposition: same day Indications for Procedure: 29-year-old male presented to the surgery clinic with complaint of blood in his stool. He states he has this with most bowel movements. Denies family history of colon cancer. Plan for colonoscopy. Risks, benefits and alternatives were provided to patient. All questions answered. Operative Findings: Small internal hemorrhoids Description of Procedure: The patient was brought to the endoscopy suite and placed in left lateral decubitus position and adequate sedation was achieved using conscious sedation. A digital rectal exam was performed and mild internal hemorrhoids were palpated. An endoscope was then placed in the rectum and advanced to the cecum as identified by landmarks including the appendiceal orifice and the ileocecal valve. The prep was good. The colonoscope was then slowly withdrawn, examining for any mucosal abnormalities. The cecum, ascending, transverse, descending and sigmoid colon were visualized adequately. No large inflammatory masses were noted throughout the colon. No obvious polyps. No evidence of diverticulosis. No evidence of bleeding. No evidence of stenosis or stricturing. Retroflexion was performed in the rectum and mild internal hemorrhoids were visible. Excess air was removed, the colonoscope withdrawn and the procedure terminated. The patient was then transferred to recovery unit in stable condition. Repeat colonoscopy should be performed at age 46 unless otherwise indicated.
[2024-08-13 11:43] VITALS: BP 115/71; PULSE 92; RESP 16
== END 2024-08-13 12:14 | disposition home or self-care (01) ==
LOC: ORWHC2ENDO 09:43
PROVIDERS: ATTEND Surgery
DX: K64.8 Other hemorrhoids (principal); I10 Essential (primary) hypertension; J45.909 Unspecified asthma, uncomplicated; G47.33 Obstructive sleep apnea (adult) (pediatric); Z79.899 Other long term (current) drug therapy
CPT/HCPCS: 45378; J2704